=== PATIENT | male | born 1985 | race Caucasian/White ===

== ENCOUNTER 2025-07-13 19:06 | Emergency (ER) | payer MEDICAID ==
[~2025-07-13] VITALS: Ht 182.9 cm; Wt 106.6 kg
[2025-07-13] MEDS ORDERED: LIDOCAINE 5% (PATCH) 1 EA PATCH TP ONE (19:46)
[2025-07-13] MEDS ORDERED: KETOROLAC TROMETHAMINE 15 MG/ML VIAL ONE (19:46)
[2025-07-13] MEDS: LIDOCAINE 5% (PATCH) 1 EA PATCH TP SCH (19:51)
[2025-07-13] MEDS: KETOROLAC TROMETHAMINE 15 MG/ML VIAL IM ONE (20:00)
[2025-07-13] MEDS ORDERED: LIDO30AD10 TP (21:22)
[2025-07-13 21:53] VITALS: BP 145/87; TEMP 98; O2SAT 97
== END 2025-07-13 21:55 | disposition home or self-care (01) ==
LOC: ER 19:19
DX: S20.211A Contusion of right front wall of thorax, initial encounter (principal); W18.39XA Other fall on same level, initial encounter; Y93.89 Activity, other specified; Y92.89 Other specified places as the place of occurrence of the external cause; Y99.8 Other external cause status
CPT/HCPCS: 99283; 71045; J1885